=== PATIENT | female | born 1990 | race Caucasian/White ===

== ENCOUNTER 2021-04-29 11:46 | Emergency (ER) | payer BC ==
[~2021-04-29] VITALS: Ht 154.9 cm; Wt 49.9 kg
--- NOTE | 2021-04-29 11:55 | NUR ---
DR LOPEZ AT BEDSIDE.
--- NOTE | 2021-04-29 12:05 | NUR ---
EKG AT BEDSIDE.
--- NOTE | 2021-04-29 12:06 | NUR ---
POSION CONTROL CALLED AT @1200 SPOKE WITH EDWARD. [phone]
[2021-04-29 12:30] VITALS: BP 108/64
[2021-04-29 12:30] LABS: BASOPHILS % (AUTO) 0.3 % (0.0-2.0); EOSINOPHILS % (AUTO) 0.1 % (0.0-4.0); HEMATOCRIT 36.5 % (36-48); HEMOGLOBIN 12.6 g/dL (12.0-16.0); LYMPHOCYTES # (AUTO) 0.6 K/uL (2.5-16.5); LYMPHOCYTES % (AUTO) 11.1 % (20.5-51.1); MEAN CORPUSCULAR HEMOGLOBIN 30 pg (27-31); MEAN CORPUSCULAR HGB CONC 35 g/dL (33-37); MEAN CORPUSCULAR VOLUME 85.6 fL (80-94); MONOCYTES # (AUTO) 0.3 K/uL (0.8-1.0); MONOCYTES % (AUTO) 4.9 % (1.7-9.3); NEUTROPHILS # (AUTO) 4.4 K/uL (1.8-7.7); NEUTROPHILS % (AUTO) 83.6 % (42.2-75.2); PLATELET COUNT (AUTO) 214 K/uL (140-450); RED BLOOD CELL COUNT(AUTO) 4.26 MIL/uL (4.20-5.40); RED CELL DISTRIBUTION WIDTH 13.3 % (11.6-13.7); WHITE BLOOD COUNT (AUTO) 5.3 K/uL (4.8-10.8)
[2021-04-29] MEDS ORDERED: CYCL-711 PO (12:38)
--- NOTE | 2021-04-29 12:44 | NUR ---
30 Y/O F BIBA FOR FLEXERIL OVERDOZE. PT TOOK ABOUT 20 10MG FLEXERIL ABOUT 2 HOURS AGO, FOUD HER LETHARGIC AND CALLED 911. PER BOYFRIEND SHE THIS IS HER FIRST TIME DOING THIS. FLEXERIL PRISCRIPTION IS UNDER PT NAME. JEY PMH: DEPRESION
[2021-04-29 12:46] LABS: BILIRUBIN,URINE NEGATIVE (NEGATIVE); BLOOD, URINE TRACE-I (NEGATIVE); COLOR,URINE YELLOW (YELLOW); LEUKOCYTE ESTERASE ,URINE 1+ (NEGATIVE); NITRITE, URINE NEGATIVE (NEGATIVE); UGLUCOSE NEGATIVE (NEGATIVE)
[2021-04-29 12:50] LABS: ALBUMIN 3.9 g/dL (3.4-5.0); ANION GAP 12.9 (8-16); ASPARTATE AMINOTRANSFERASE 17 U/L (15-37); CARBON DIOXIDE 24.7 mmol/L (21-32); CHLORIDE 104 mmol/L (98-107); CREATININE 0.6 mg/dL (0.6-1.3); GFR ARICAN-AMERICAN 150 mL/min (>90); GLUCOSE 109 mg/dL (74-106); POTASSIUM 3.6 mmol/L (3.5-5.1); SODIUM SERUM 138 mmol/L (136-145); TOTAL BILIRUBIN 0.4 mg/dL (0.0-1.0); UREA NITROGEN, BLOOD 5 mg/dL (7-18)
--- NOTE | 2021-04-29 12:50 | NUR ---
X-RAY AT BEDSIDE.
--- NOTE | 2021-04-29 12:52 | NUR ---
FOR SUICIDE SEVERITY RATING SCALE PT WAS TO LETHARGIC TO ANSWER QUESTIONS.
[2021-04-29 12:53] LABS: RBC,URINE 0-5 /HPF (0-5)
[2021-04-29 12:54] LABS: APPEARANCE,URINE HAZY (CLEAR)
[2021-04-29 12:56] LABS: ACETAMINOPHEN < 0.5 ug/ml (10-30); SALICYLATE < 2.8 mg/dL (2.8-20.0)
[2021-04-29 16:41] LABS: BARBITURATE, URINE NEGATIVE ng/ml (NEG <=200); BENZODIAZEPINE, URINE NEGATIVE ng/mL (NEG <=200); CANNABINOID, URINE NEGATIVE ng/mL (NEG <=50); COCAINE, URINE NEGATIVE ng/mL (NEG <=300); OPIATE, URINE NEGATIVE ng/mL (NEG <=2000); PHENCYCLIDINE SCREEN,URINE NEGATIVE ng/mL (NEG <=25)
--- NOTE | 2021-04-29 17:57 | NUR ---
PT RESTING/ SLEEPING.
--- NOTE | 2021-04-29 18:54 | NUR ---
DR GRAY AT BEDSIDE.
--- NOTE | 2021-04-29 19:11 | NUR ---
GAVE REPORT TO WILFREDO WREN.
--- NOTE | 2021-04-29 20:07 | NUR ---
TELEPSYCH DOCTOR SPEAKING WITH PRIMARY NURSE Sawyer MCELROY
--- NOTE | 2021-04-29 21:45 | NUR ---
MEDICALLY CLEARED PER . PT SLEEPING IN BED. BOTH SIDE RAILS UP FOR SAFETY. PT KEEPS FALLING IN AND OUT OF SLEEP.
--- NOTE | 2021-04-29 22:34 | NUR ---
Packet fax to [facility]
--- NOTE | 2021-04-29 23:58 | NUR ---
walked pcr over to lab. pily made aware
--- NOTE | 2021-04-30 02:38 | NUR ---
PT QUIETLY SLEEPING IN SEMI FOWLERS POSTION. PT IS EASY TO AROUSE. ALL VSS. A&0X4. X2 RAILS UP FOR SAFETY WHIL EPT SLEEPS
--- NOTE | 2021-04-30 05:32 | NUR ---
[facility] AT BEDSIDE
--- NOTE | 2021-04-30 05:57 | NUR ---
PT TAKEN BY [facility] TO [facility]
[2021-04-30 05:58] VITALS: BP 106/60
--- NOTE | 2021-04-30 05:58 | NUR ---
Patient to be transferred to [facility]. Is being transferred due TP RTS. Receiving facility has accepting physician and available space. ER physician has signed transfer form. Patient or responsible democrat has agreed to transfer and signed form. Patient belongings inventoried and will be sent with patient. Copy of nursing notes, lab reports, EKG, Physicians Orders and X-rays to be sent with patient. Report called to [facility]. S ambulance service has been called for transfer. ETA is 20 MIN.
[2021-04-30] MEDS ORDERED: ESCITALOPRAM 20 MG TAB PO SCH (17:00)
== END 2021-04-30 05:57 ==
LOC: MED 11:46
DX: T42.4X2A Poisoning by benzodiazepines, intentional self-harm, initial encounter (principal); Y92.89 Other specified places as the place of occurrence of the external cause; Z20.822 Contact with and (suspected) exposure to COVID-19
CPT/HCPCS: 36415; 71045; 80053; 80305; 81001; 81025; 84484; 85025; 87086; 87420; 87426; 93005; 99285; G0480; G0482; Q0092; U0003